=== PATIENT | female | born 1940 | race Asian ===

== ENCOUNTER → 2020-04-29 | Emergency (ER) | payer MEDICARE, MEDICAID ==
[~2020-04-29] VITALS: Ht 149.9 cm; Wt 45.4 kg
[~2020-04-29] MED LIST: EPINEPHrine HCL 1 MG/10 ML SYRG ONE; NOREPINEPHRINE 8 MG/250ML KIT 250 ML IV ONE
[2020-04-29 17:00] VITALS: BP 71/48
[2020-04-29 17:18] LABS: INR 1.24 (0.9-1.15); Partial Thromboplastin Time 56.9 sec (23.64-32.05)
[2020-04-29 17:19] LABS: Albumin 2.1 g/dL (3.4-5.0); Calcium 9.9 mg/dL (8.5-10.1); Magnesium 3.6 mg/dL (1.6-2.6)
[2020-04-29 17:27] LABS: BUN/Creatinine Ratio 60.6; Bilirubin, Total 0.6 mg/dL (0.2-1.0); Total Protein 6.1 g/dL (6.4-8.2)
[2020-04-29 17:45] LABS: Mean Corpuscular Volume 87.9 fL (80.0-100.0)
[2020-04-29 17:46] LABS: Hematocrit 27.6 % (36.0-46.0); Mean Corpuscular Hemoglobin 25.4 pg (28.0-32.0); Mean Corpuscular Hgb Conc. 28.9 g/dL (32.0-36.0); Platelet Count (auto) 120 10^3/uL (140-450); Red Blood Cells 3.14 10^6/uL (4.0-5.20); Red Cell Distribution Width 17.5 % (11.8-14.3)
[2020-04-29 18:04] LABS: Potassium 6.5 mmol/L (3.5-5.1)
[2020-04-29 18:08] LABS: Band Neutrophils % (manual) 0; Basophils % (manual) 0 (0.0-2.0); Blast Cells 0; Eosinophils % (manual) 0 (0-7); Myelocytes % 0; Promyelocytes % 0; Reactive Lymphocytes 0
[2020-04-29 19:30] LABS: Lymphocytes % (manual) 43 (10.0-50.0); Monocytes % (manual) 2 (0-12)
[2020-04-29 19:31] LABS: Metamyelocytes % 1
== END | disposition home or self-care (01) ==
LOC: ER 16:22 → EDBD 16:22
DX: I46.9 Cardiac arrest, cause unspecified (principal)
CPT/HCPCS: 31500; 36415; 36600; 71045; 80053; 82805; 83735; 84484; 85007; 85027; 85610; 85730; 92950; 99285; J0171